=== PATIENT | male | born 1970 | race African-American/Black ===

== ENCOUNTER 2020-09-27 10:17 | Emergency (ER) | payer OTHER ==
[~2020-09-27] VITALS: Ht 165.1 cm; Wt 81.6 kg
[2020-09-27 10:25] VITALS: BP 132/83
[2020-09-27] MEDS ORDERED: cefTRIAXone SOD 1,000 MG VL IM ONE (12:45)
== END 2020-09-27 13:35 | disposition home or self-care (01) ==
LOC: ER 10:17
DX: J18.9 Pneumonia, unspecified organism (principal); Z20.828 Contact with and (suspected) exposure to other viral communicable diseases
CPT/HCPCS: 36415; 71045; 87426; 96372; 99284; J0696

== ENCOUNTER 2023-09-08 08:08 | Emergency (ER) | payer OTHER ==
[~2023-09-08] VITALS: Ht 162.6 cm; Wt 89.0 kg
[2023-09-08 09:07] VITALS: BP 158/107; PULSE 79; RESP 18; TEMP 98; O2SAT 96
[2023-09-08] MEDS ORDERED: HYDROcodone-ACET 5/325MG TAB PO ONE (09:15)
[2023-09-08] MEDS ORDERED: KETOROLAC TROMETH 60MG/2ML VIAL IM ONE (09:15)
[2023-09-08] MEDS ORDERED: TRAM50TA2 PO (09:35)
[2023-09-08] MEDS ORDERED: PRED20TA2 PO (09:35)
== END 2023-09-08 09:56 | disposition home or self-care (01) ==
LOC: ER 08:08
DX: G89.29 Other chronic pain (principal); M54.16 Radiculopathy, lumbar region; I10 Essential (primary) hypertension
CPT/HCPCS: 96372; 99283; J1885